=== PATIENT | male | born 1990 | race African-American/Black ===

== ENCOUNTER 2024-06-23 17:16 | Emergency (ER) | payer OTHER ==
[2024-06-23] MEDS ORDERED: Ketorolac Tromethamine 60 MG/2 ML VIAL ONE (17:49)
[2024-06-23] MEDS ORDERED: diphenhydrAMINE 50 MG/ML VIAL ONE (18:12)
== END 2024-06-23 19:00 ==
LOC: NAV ERS 17:16
DX: S29.012A Strain of muscle and tendon of back wall of thorax, initial encounter (principal); T42.8X5A Adverse effect of antiparkinsonism drugs and other central muscle-tone depressants, initial encounter; I10 Essential (primary) hypertension; E78.5 Hyperlipidemia, unspecified; Z86.73 Personal history of transient ischemic attack (TIA), and cerebral infarction without residual deficits; Z79.82 Long term (current) use of aspirin
CPT/HCPCS: 96372; 99283; J1200; J1885

== ENCOUNTER 2024-06-29 00:28 | Emergency (ER) | payer OTHER ==
[2024-06-29] MEDS ORDERED: Acetaminophen 500 MG TAB ONE (01:12)
[2024-06-29] MEDS ORDERED: Sodium Chloride 0.9% 100 ML ONE (01:13)
[2024-06-29] MEDS ORDERED: Prochlorperazine 10 MG/2 ML VIAL ONE (01:13)
[2024-06-29] MEDS ORDERED: diphenhydrAMINE 50 MG/ML VIAL ONE (01:13)
[2024-06-29] MEDS ORDERED: Sodium Chloride 0.9% 1,000 ML ONE (01:13)
== END 2024-06-29 02:50 ==
LOC: NAV ERS 00:28
DX: S29.012A Strain of muscle and tendon of back wall of thorax, initial encounter (principal); R07.9 Chest pain, unspecified; R51.9 Headache, unspecified; I10 Essential (primary) hypertension; J45.909 Unspecified asthma, uncomplicated; Z79.899 Other long term (current) drug therapy; X50.0XXA Overexertion from strenuous movement or load, initial encounter
CPT/HCPCS: 93005; 96374; J0780; J1200